=== PATIENT | male | born 1980 | race Caucasian/White ===

== ENCOUNTER 2021-02-16 15:27 | Emergency (ER) | payer SELFPAY ==
[2021-02-16 15:40] VITALS: BP 120/62; PULSE 67; TEMP 97.9; BMI 24.3
[2021-02-16] MEDS ORDERED: BACITRACIN 15 GM TUBE TOPICAL OINTMENT TP ONE (16:47)
[2021-02-16] MEDS ORDERED: ACETAMINOPHEN 500 MG TABLET (FP) PO ONE (16:47)
== END 2021-02-16 16:52 | disposition home or self-care (01) ==
LOC: JERFT 15:27
PROC: 0HQ0XZZ Repair Scalp Skin, External Approach (ICD-10-PCS; principal; 2021-02-16)
DX: S01.01XA Laceration without foreign body of scalp, initial encounter (principal); W19.XXXA Unspecified fall, initial encounter
CPT/HCPCS: 99283-25